=== PATIENT | female | born 1975 | race Hispanic/Latino ===

== ENCOUNTER 2025-03-04 14:49 | Emergency (ER) | payer OTHER ==
[~2025-03-04] VITALS: Ht 162.6 cm; Wt 109.0 kg
[2025-03-04] MEDS ORDERED: HYDROCODON-ACE1 EA10 PO (17:27)
[2025-03-04] MEDS ORDERED: HYDROCODONE/ACETA 5/325 TAB PO ONE (17:30)
[2025-03-04 17:40] VITALS: BP 166/74
== END 2025-03-04 17:35 | disposition home or self-care (01) ==
LOC: ED 14:49
DX: S83.92XA Sprain of unspecified site of left knee, initial encounter (principal); W19.XXXA Unspecified fall, initial encounter
CPT/HCPCS: 73560; 99283